=== PATIENT | male | born 1975 | race Caucasian/White ===

== ENCOUNTER 2017-08-20 13:50 | Emergency (ER) | payer MEDICAID ==
[~2017-08-20] VITALS: Ht 185.4 cm; Wt 95.3 kg
[2017-08-20 14:49] LABS: POTASSIUM 4.1 mmol/L (3.5-5.1)
[2017-08-20 14:51] LABS: BASOPHILS # (AUTO) 0.1 K/uL (0.0-8.0); BASOPHILS % (AUTO) 0.7 % (0.0-2.0); EOSINOPHILS # (AUTO) 0.1 K/uL (0.0-0.7); EOSINOPHILS % (AUTO) 1.7 % (0.0-7.0); HEMATOCRIT 43.1 % (40-50); HEMOGLOBIN 14.4 G/DL (14.0-18.0); LYMPHOCYTES # (AUTO) 1.7 K/UL (0.8-4.8); LYMPHOCYTES % (AUTO) 19.8 % (20.5-51.5); MEAN CORPUSCULAR HEMOGLOBIN 28.8 UUG (27.0-31.0); MEAN CORPUSCULAR HGB CONC 33 g/dL (32.0-37.0); MEAN CORPUSCULAR VOLUME 86.3 FL (82.0-92.0); MONOCYTES # (AUTO) 0.5 K/UL (0.1-1.30); MONOCYTES % (AUTO) 6.1 % (0.0-11.0); NEUTROPHILS # (AUTO) 6.4 K/UL (1.8-8.9); NEUTROPHILS % (AUTO) 71.7 % (38.5-71.5); PLATELET COUNT (AUTO) 380 K/UL (150-450); WHITE BLOOD COUNT (AUTO) 8.8 K/UL (4.0-11.2)
[2017-08-20 14:55] LABS: BILIRUBIN,DIRECT 0.1 mg/dL (0.0-0.2); BILIRUBIN,TOTAL 0.4 mg/dL (0.2-1.0); TOTAL PROTEIN, SERUM 7.5 g/dL (6.4-8.2)
--- NOTE | 2017-08-20 16:54 | NUR ---
Patient discharged to home in stable conditon. Written and verbal after care instructions given. Patient verbalizes understanding of instructions.PT WALKS IN STEADY GAIT, NO SIGN OF DISTRESS. Addendum: 08/20/17 at 1654 by JUANY PT ACCOMPANIED BY AB.
[2017-08-20 16:55] VITALS: BP 109/77
== END 2017-08-20 16:57 | disposition home or self-care (01) ==
LOC: ER 13:50
DX: S21.139A Puncture wound without foreign body of unspecified front wall of thorax without penetration into thoracic cavity, initial encounter (principal); X58.XXXA Exposure to other specified factors, initial encounter; Y93.89 Activity, other specified; Y92.59 Other trade areas as the place of occurrence of the external cause; Y99.9 Unspecified external cause status
CPT/HCPCS: 12001; 71010; 71260; 74177; 80048; 80076; 85025; 90471; 90715; 99285; A4217; A4663; J3490; J7050; Q9967

== ENCOUNTER 2018-09-07 01:14 | Emergency (ER) | payer MEDICAID ==
[~2018-09-07] VITALS: Ht 182.9 cm; Wt 99.8 kg
--- NOTE | 2018-09-07 01:46 | NUR ---
Pt came in the ED for complaints of toothache 3-4 days. Pt has a tooth decay to L lower gums. Swelling to jaw with tenderness to L cheek, jaw and neck noted. Denies fever at this time. Will cont to monitor.
[2018-09-07] MEDS ORDERED: CLINDAMYCIN HCL 300 MG CAPSULE ONE (01:58)
[2018-09-07] MEDS ORDERED: diphenhydrAMINE 50 MG/1 ML VIAL ONE (01:59)
[2018-09-07] MEDS ORDERED: MORPHINE SULFATE 4 MG/1 ML DISP.SYRIN ONE (01:59)
[2018-09-07] MEDS ORDERED: CLINDAMYCIN HCL 150 MG CAPSULE PO ONE (02:00)
[2018-09-07] MEDS ORDERED: diphenhydrAMINE 50 MG/1 ML VIAL IM ONE (02:00)
[2018-09-07] MEDS ORDERED: MORPHINE SULFATE 4 MG/1 ML DISP.SYRIN IM ONE (02:00)
[2018-09-07 02:26] VITALS: BP 134/83
--- NOTE | 2018-09-07 02:26 | NUR ---
Patient discharged to home in stable conditon. Written and verbal after care instructions given. Patient verbalizes understanding of instructions.
== END 2018-09-07 02:27 | disposition home or self-care (01) ==
LOC: ER 01:20
DX: L03.211 Cellulitis of face (principal); L02.01 Cutaneous abscess of face; K12.2 Cellulitis and abscess of mouth; F12.10 Cannabis abuse, uncomplicated; F17.200 Nicotine dependence, unspecified, uncomplicated
CPT/HCPCS: 96372 ×2; 99284; A4663; J1200; J2270

== ENCOUNTER 2019-11-19 17:26 | Emergency (ER) | payer MEDICAID ==
[~2019-11-19] VITALS: Ht 185.4 cm; Wt 99.8 kg
[2019-11-19] MEDS ORDERED: VANCOMYCIN IV 200 ML ONE (17:58)
[2019-11-19] MEDS ORDERED: VANCOMYCIN IV 1,000 MG in IV DEXTROSE 5% 250 ML IV ONE (18:00)
[2019-11-19] MEDS ORDERED: CEFTRIAXONE 1 G in IV DEXTROSE 5% 50 ML IV ONE (18:00)
--- NOTE | 2019-11-19 18:03 | NUR ---
PT IS IN ROOM #1B. DR PASCAL EVALUATED THE PT.
--- NOTE | 2019-11-19 18:50 | NUR ---
REPORT GIVEN TO [facility]ACT[facility] DEBRIEFER.
[2019-11-19] MEDS ORDERED: CEFTRIAXONE /D5W 50ML IVPB **ER PYXIS IV ONE (19:02)
[2019-11-19 19:31] VITALS: BP 118/70
--- NOTE | 2019-11-19 19:40 | NUR ---
IV removed. Catheter intact and site benign. Pressure and 4x4 gauze applied to site. No bleeding noted. Patient discharged to home in stable conditon. Written and verbal after care instructions given. Patient verbalizes understanding of instructions. Patient ambulating with steady gait
== END 2019-11-19 19:40 | disposition home or self-care (01) ==
LOC: ER 17:28
DX: H05.011 Cellulitis of right orbit (principal); F17.200 Nicotine dependence, unspecified, uncomplicated; F12.10 Cannabis abuse, uncomplicated
CPT/HCPCS: 96365; 96366; 96368; 99283; J0696; J3370; A4663

== ENCOUNTER 2019-11-21 13:30 | Emergency (ER) | END 2019-11-21 14:53 | disposition home or self-care (01) | DX: L03.211 Cellulitis of face (principal); F17.200 Nicotine dependence, unspecified, uncomplicated; F12.10 Cannabis abuse, uncomplicated ==

== ENCOUNTER 2020-08-09 13:11 | Emergency (ER) | payer MEDICAID, OTHER ==
[~2020-08-09] VITALS: Ht 185.4 cm; Wt 99.8 kg
[2020-08-09] MEDS ORDERED: LIDOCAINE HCL 2% 20 ML VIAL TP ONE (13:30)
[2020-08-09] MEDS ORDERED: SODIUM BICARBONATE 4.2 % (NEUT) 5 ML VIAL TP ONE (13:30)
[2020-08-09] MEDS ORDERED: LET TOPICAL SOLUTION 8 ML UDC TP ONE (13:30)
[2020-08-09] MEDS ORDERED: LET TOPICAL SOLUTION 8 ML UDC ONE (13:32)
[2020-08-09] MEDS ORDERED: SULFAMETH/TRIMETH 800/160 MG TABLET ONE (14:29)
[2020-08-09] MEDS ORDERED: CEphaleXIN 500 MG CAPSULE ONE (14:29)
[2020-08-09] MEDS ORDERED: SULFAMETH/TRIMETH 800/160 MG TABLET PO ONE (14:30)
[2020-08-09] MEDS ORDERED: CEphaleXIN 500 MG CAPSULE PO ONE (14:30)
[2020-08-09 14:38] VITALS: BP 132/77
== END 2020-08-09 14:35 | disposition home or self-care (01) ==
LOC: ER 13:17
DX: L02.414 Cutaneous abscess of left upper limb (principal); S41.132S Puncture wound without foreign body of left upper arm, sequela; X78.8XXS Intentional self-harm by other sharp object, sequela; F11.10 Opioid abuse, uncomplicated; F15.10 Other stimulant abuse, uncomplicated; R03.0 Elevated blood-pressure reading, without diagnosis of hypertension
CPT/HCPCS: 10060; 99284; J3490; A4663

== ENCOUNTER 2020-08-10 13:48 | Emergency (ER) | payer OTHER ==
[~2020-08-10] VITALS: Ht 185.4 cm; Wt 99.8 kg
--- NOTE | 2020-08-10 14:23 | NUR ---
DR PASCAL EVALUATED THE PT. PT WAS D/C'd TO HOME. D/C INSTRUCTIONS GIVEN TO THE PT BY DR PASCAL.
[2020-08-10 14:28] VITALS: BP 136/78
== END 2020-08-10 14:29 | disposition home or self-care (01) ==
LOC: ER 13:48
DX: Z48.817 Encounter for surgical aftercare following surgery on the skin and subcutaneous tissue (principal); L02.414 Cutaneous abscess of left upper limb; F11.10 Opioid abuse, uncomplicated; F15.10 Other stimulant abuse, uncomplicated; R03.0 Elevated blood-pressure reading, without diagnosis of hypertension
CPT/HCPCS: A4663

== ENCOUNTER 2020-12-28 03:33 | Emergency (ER) | payer OTHER ==
[~2020-12-28] VITALS: Ht 185.4 cm; Wt 99.8 kg
[2020-12-28] MEDS ORDERED: BACITRACIN ZINC OINT 15 GM TUBE TOP STA (03:52)
[2020-12-28] MEDS ORDERED: BACITRACIN OPHT OINT 3.5 GM TUBE ONE (04:00)
--- NOTE | 2020-12-28 04:09 | NUR ---
Patient discharged to home in stable condition. Admin bacitracin to lesions on lower extremities and abdomen. Written and verbal after care instructions given. Patient verbalizes understanding of instructions. Stressed follow up or return to ER for worsening s/s. VS stable, no acute distress noted.
--- NOTE | 2020-12-28 04:09 | NUR ---
Note brian in EDM - 12/28/20 at 0414 by BEBETO Patient discharged to home in stable condition. Admin bacitracin to abscesses. Written and verbal after care instructions given. Patient verbalizes understanding of instructions. Stressed follow up or return to ER for worsening s/s. VS stable, no acute distress noted.
== END 2020-12-28 04:16 | disposition home or self-care (01) ==
LOC: ER 03:40
DX: L02.216 Cutaneous abscess of umbilicus (principal); L03.311 Cellulitis of abdominal wall; L03.116 Cellulitis of left lower limb; L03.115 Cellulitis of right lower limb; F15.10 Other stimulant abuse, uncomplicated; F11.10 Opioid abuse, uncomplicated; F17.200 Nicotine dependence, unspecified, uncomplicated
CPT/HCPCS: A4663; J3590

== ENCOUNTER 2021-06-22 22:00 | Emergency (ER) | payer OTHER ==
[~2021-06-22] VITALS: Ht 185.4 cm; Wt 104.3 kg
--- NOTE | 2021-06-22 22:14 | NUR ---
MD Nelson in room to do MSE.
[2021-06-22] MEDS ORDERED: TDAP DIPH,PERTUSS,TET VAC/PF 0.5 ML DISP.SYRIN IM ONE ×2 (22:15→22:29)
[2021-06-22] MEDS ORDERED: FLUORESCEIN SODIUM 1 MG STRIP OP ONE (22:15)
[2021-06-22] MEDS ORDERED: TETRACAINE HCL 0.5% OPHT DROP 2 ML BOTTLE OP ONE (22:15)
[2021-06-22] MEDS ORDERED: FLUORESCEIN SODIUM 1 MG STRIP ONE (22:28)
[2021-06-22] MEDS ORDERED: TETRACAINE HCL 0.5% OPHT DROP 2 ML BOTTLE ONE (22:28)
--- NOTE | 2021-06-22 22:30 | NUR ---
Unable to obtain TDAP vaccination form. Patient provided verbal consent to the vaccine for IM administration. Jose Martin Lua notified of inability to obtain consent forms. Administered via R Deltoid; 0.5 mL Tetanus Toxoid, Reduced Diphtheria Toxoid and Acellular Pertussis Vaccine Lot #: [id number] Expiration date: 05/31/22 d. by: [employer]
[2021-06-22] MEDS ORDERED: CIPR2.5D14 LEFTEYE (22:39)
[2021-06-22] MEDS ORDERED: HYDROCODONE/APAP 5-325MG TABLET PO ONE (22:45)
[2021-06-22 22:47] VITALS: BP 138/88
--- NOTE | 2021-06-22 22:50 | NUR ---
Patient discharged to home in stable condition. Written and verbal after care instructions given. Patient verbalizes understanding of instructions. Stressed follow up or return to ER for worsening s/s. Patient ambulates with steady gait, V/S stable, Rx electronically sent by MD Nelson, advised to not drive, and left with all personal belongings.
[2021-06-22] MEDS ORDERED: HYDROCODONE/APAP 5-325MG TABLET ONE (22:51)
== END 2021-06-22 22:47 | disposition home or self-care (01) ==
LOC: ER 22:02
DX: S05.02XA Injury of conjunctiva and corneal abrasion without foreign body, left eye, initial encounter (principal); W22.8XXA Striking against or struck by other objects, initial encounter; Y92.89 Other specified places as the place of occurrence of the external cause
CPT/HCPCS: 90715; A4663

== ENCOUNTER 2021-08-22 03:13 | Emergency (ER) | payer OTHER ==
[~2021-08-22] VITALS: Ht 185.4 cm; Wt 104.3 kg
[~2021-08-22 03:13] MED LIST: CIPR2.5D14 LEFTEYE
--- NOTE | 2021-08-22 03:26 | NUR ---
Dr. Forrest at bedside for MSE.
--- NOTE | 2021-08-22 03:30 | NUR ---
Pt stated he doesn't want ER staff to call the police at this moment and that he will make the report himself on his own time.
[2021-08-22 04:04] LABS: *BILIRUBIN,URIN NEGATIVE (NEGATIVE); *BLOOD, URINE NEGATIVE (NEGATIVE); *KETONES,URINE NEGATIVE (NEGATIVE); *UROBILINOGEN,URINE 0.2 E.U./dl (NORMAL); LEUKOCYTE ESTERASE ,URINE NEGATIVE (NEGATIVE); NITRITE, URINE NEGATIVE (NEGATIVE); PH,URINE 5.5 (5.0-8.0); UGLUCOSE NEGATIVE (NEGATIVE)
--- NOTE | 2021-08-22 04:05 | NUR ---
Patient discharged to home in stable condition. Written and verbal after care instructions given. Patient verbalizes understanding of instructions. Stressed follow up or return to ER for worsening s/s. Patient out of ER with steady gait, no acute signs of distress, VSS, all belongings taken.
[2021-08-22 04:06] VITALS: BP 133/85
[2021-08-22 04:09] LABS: *CLARITY,URINE CLEAR (CLEAR); *COLOR,URINE STRAW (YELLOW)
[2021-08-22 04:16] LABS: *AMPHETAMINE, URINE POSITIVE (NEGATIVE); *CANNABINOID, URINE NEGATIVE (NEGATIVE); *COCCAINE, URINE NEGATIVE (NEGATIVE); *OPIATE, URINE POSITIVE (NEGATIVE); *PHENCYCLIDINE SCREEN,URINE NEGATIVE (NEGATIVE)
== END 2021-08-22 04:06 | disposition home or self-care (01) ==
LOC: ER 03:14
DX: S20.212A Contusion of left front wall of thorax, initial encounter (principal); Y04.0XXA Assault by unarmed brawl or fight, initial encounter; Y92.89 Other specified places as the place of occurrence of the external cause; F17.210 Nicotine dependence, cigarettes, uncomplicated
CPT/HCPCS: 71101; A4663

== ENCOUNTER 2024-01-07 14:42 | Emergency (ER) | payer MEDICAID, OTHER ==
[~2024-01-07] VITALS: Ht 185.4 cm; Wt 99.8 kg
[2024-01-07 14:55] VITALS: O2SAT 100
[2024-01-07 15:59] LABS: *BILIRUBIN,URIN NEGATIVE (NEGATIVE); *BLOOD, URINE NEGATIVE (NEGATIVE); *CLARITY,URINE CLEAR (CLEAR); *COLOR,URINE YELLOW (YELLOW); *KETONES,URINE NEGATIVE (NEGATIVE); *PROTEIN,URINE NEGATIVE (NEGATIVE); LEUKOCYTE ESTERASE ,URINE NEGATIVE (NEGATIVE); NITRITE, URINE NEGATIVE (NEGATIVE); PH,URINE 6.5 (5.0-8.0); UGLUCOSE NEGATIVE (NEGATIVE)
[2024-01-07 16:13] LABS: BASOPHILS # (AUTO) 0.2 K/UL (0.0-0.2); BASOPHILS % (AUTO) 3.7 % (0.0-2.0); EOSINOPHILS # (AUTO) 0.2 K/uL (0.0-0.7); EOSINOPHILS % (AUTO) 3.6 % (0.0-7.0); HEMOGLOBIN 13.1 g/dL (12.5-16.3); LYMPHOCYTES # (AUTO) 1.1 K/uL (0.8-4.8); LYMPHOCYTES % (AUTO) 16.6 % (20.5-51.5); MEAN CORPUSCULAR HEMOGLOBIN 29.5 uug (23.8-33.4); MEAN CORPUSCULAR HGB CONC 34 g/dL (32.5-36.3); MEAN CORPUSCULAR VOLUME 85.6 fL (73.0-96.2); MONOCYTES # (AUTO) 0.6 K/uL (0.1-1.30); MONOCYTES % (AUTO) 9.6 % (0.0-11.0); NEUTROPHILS # (AUTO) 4.4 K/uL (1.8-8.9); NEUTROPHILS % (AUTO) 66.5 % (38.5-71.5); PLATELET COUNT (AUTO) 269 K/uL (152-348); RED BLOOD CELL COUNT(AUTO) 4.44 MIL/uL (4.06-5.63); WHITE BLOOD COUNT (AUTO) 6.6 K/uL (3.6-10.2)
[2024-01-07 16:14] LABS: DIFFERENTIAL COMMENT 1
[2024-01-07 16:16] LABS: *AMPHETAMINE, URINE POSITIVE (NEGATIVE); *BARBITURATE, URINE NEGATIVE (NEGATIVE); *BENZODIAZEPINE, URINE NEGATIVE (NEGATIVE); *CANNABINOID, URINE POSITIVE (NEGATIVE); *COCCAINE, URINE NEGATIVE (NEGATIVE); *OPIATE, URINE POSITIVE (NEGATIVE); *PHENCYCLIDINE SCREEN,URINE NEGATIVE (NEGATIVE)
[2024-01-07 16:24] LABS: CALCIUM 8.7 mg/dL (8.5-10.1); POTASSIUM 3.7 mmol/L (3.5-5.1)
[2024-01-07] MEDS ORDERED: BUPR1FIL5 SL (16:38)
[2024-01-07 16:42] LABS: FENTANYL, URINE POSITIVE (NEGATIVE)
[2024-01-07] MEDS ORDERED: TDAP DIPH,PERTUSS,TET VAC/PF 0.5 ML DISP.SYRIN IM ONE (16:48)
[2024-01-07] MEDS: TDAP DIPH,PERTUSS,TET VAC/PF 0.5 ML DISP.SYRIN IM ONE (16:59)
[2024-01-07] MEDS ORDERED: SILD50TA PO (17:03)
== END 2024-01-07 17:21 | disposition home or self-care (01) ==
LOC: ER 14:45
DX: S01.01XA Laceration without foreign body of scalp, initial encounter (principal); F19.10 Other psychoactive substance abuse, uncomplicated; F15.10 Other stimulant abuse, uncomplicated; I10 Essential (primary) hypertension; K02.9 Dental caries, unspecified; F17.210 Nicotine dependence, cigarettes, uncomplicated; Z79.899 Other long term (current) drug therapy; Z60.2 Problems related to living alone
CPT/HCPCS: 36415; 85025; 90715; A4606; A4663

== ENCOUNTER 2025-10-07 01:43 | Emergency (ER) | payer MEDICAID ==
[~2025-10-07] VITALS: Ht 185.4 cm; Wt 104.3 kg
[~2025-10-07 01:43] MED LIST changes: +BUPR1FIL5 SL; +SILD50TA PO
[2025-10-07 03:27] VITALS: BP 169/111
[2025-10-07] MEDS ORDERED: ONDANSETRON ODT 4 MG TAB.RAPDIS ONE (03:49)
[2025-10-07] MEDS ORDERED: HYDROCODONE/APAP 10-325 MG TABLET ONE (03:49)
[2025-10-07] MEDS: HYDROCODONE/APAP 10-325 MG TABLET PO ONE (03:52)
[2025-10-07] MEDS: ONDANSETRON ODT 4 MG TAB.RAPDIS SL ONE (03:52)
[2025-10-07] MEDS ORDERED: IBUP-1955 PO (07:08)
[2025-10-07] MEDS ORDERED: CYCL5TAB PO (07:08)
[2025-10-07] MEDS ORDERED: LIDO30AD10 TP (07:08)
[2025-10-07] MEDS ORDERED: METH4TAB3 PO (07:08)
[2025-10-07] MEDS ORDERED: LIDOCAINE 5% PATCH TD ONE (07:15)
[2025-10-07] MEDS ORDERED: DEXAMETHASONE SOD PHOSPHATE 4 MG INJ ONE (07:15)
[2025-10-07] MEDS: CYCLOBENZAPRINE HCL 10 MG TABLET PO ONE (07:16)
[2025-10-07] MEDS ORDERED: KETOROLAC TROMETHAMINE 15 MG INJ ONE (07:16)
[2025-10-07] MEDS: DEXAMETHASONE SOD PHOSPHATE 4 MG INJ IM ONE (07:23)
[2025-10-07] MEDS: KETOROLAC TROMETHAMINE 15 MG INJ IM ONE (07:23)
[2025-10-07] MEDS: LIDOCAINE 5% PATCH TD ONE (07:24)
[2025-10-07 07:31] VITALS: BP 169/111; O2SAT 100
== END 2025-10-07 07:31 | disposition home or self-care (01) ==
LOC: ER 02:29
DX: M54.50 Low back pain, unspecified (principal); F19.10 Other psychoactive substance abuse, uncomplicated; F17.210 Nicotine dependence, cigarettes, uncomplicated; M47.816 Spondylosis without myelopathy or radiculopathy, lumbar region; M48.061 Spinal stenosis, lumbar region without neurogenic claudication; R32 Unspecified urinary incontinence; Z99.2 Dependence on renal dialysis
CPT/HCPCS: 99285; 72128; 72131; 96372; J1885; J1100; A4606; A4663; Q0162